=== PATIENT | male | born 1955 | race Caucasian/White ===

== ENCOUNTER → 2018-07-05 | Outpatient (CLI) | payer OTHER ==
[~2018-07-05] MED LIST: CEFD300C37 PO; LOVA10TA PO; MONT10TA6 PO; PRED1TAB PO
[2018-07-05 15:06] LABS: BASOPHILS # (AUTO) 0.02 x10^3/uL (0-0.1); BASOPHILS % (AUTO) 0 % (0-1); EOSINOPHILS # (AUTO) 0.01 x10^3/uL (0-0.4); EOSINOPHILS % (AUTO) 0 % (1-7); LYMPHOCYTES # (AUTO) 1.22 x10^3/uL (1-3.4); LYMPHOCYTES % (AUTO) 11 % (22-44); MD NO; MEAN CORPUSCULAR HEMOGLOBIN 30.6 pg (27.5-34.5); MEAN CORPUSCULAR HGB CONC 34.7 g/dL (33.2-36.2); MEAN CORPUSCULAR VOLUME 88.2 fL (81-97); MEAN PLATELET VOLUME 6.9 fL (7.4-10.4); MONOCYTES % (AUTO) 4 % (2-9); NEUTROPHILS # (AUTO) 9.45 x10^3/uL (1.8-6.8); NEUTROPHILS % (AUTO) 85 % (42-75); PLATELET COUNT 293 x10^3/uL (130-400); RED BLOOD COUNT 5.17 x10^6/uL (4.38-5.82); RED CELL DISTRIBUTION WIDTH 12.9 % (9.4-14.8)
[2018-07-05 15:11] LABS: MICROSCOPIC NOT IND
[2018-07-05 15:14] LABS: CULTURE INDICATED? NO
[2018-07-05 15:16] LABS: INTERNATIONAL NORMALIZED RATIO 0.96 (0.93-1.1); PROTHROMBIN TIME 10.1 Seconds (9.6-11.5)
[2018-07-05 15:17] LABS: ANION GAP 7 mmol/L (5-15); CALCIUM 9.2 mg/dL (8.5-10.1); CHLORIDE 109 mmol/L (98-107); CREATININE 1.33 mg/dL (0.7-1.3)
== END | disposition home or self-care (01) ==
LOC: STAR 14:05
PROVIDERS: ATTEND Neurological Surgery
DX: Z01.818 Encounter for other preprocedural examination (principal); M51.36 Other intervertebral disc degeneration, lumbar region; M51.26 Other intervertebral disc displacement, lumbar region
CPT/HCPCS: 36415; 71046; 72110; 80048; 81003; 85025; 85610; 85730; 93005

== ENCOUNTER 2018-07-14 14:22 | Inpatient (IN) | payer OTHER ==
[~2018-07-14] VITALS: Ht 170.2 cm; Wt 85.8 kg
[2018-07-14 15:00] VITALS: BP 146/99
[2018-07-14] MEDS ORDERED: LACTATED RINGERS 1,000 ML IV SCH (15:38)
[2018-07-14] MEDS ORDERED: EPINEPHRINE 1 MG/ML, 1ML ONE (16:13)
[2018-07-14] MEDS ORDERED: BUPIVACAINE/PF 0.25% ONE (16:13)
[2018-07-14] MEDS ORDERED: BACITRACIN 50,000 UNIT ONE (16:13)
[2018-07-14] MEDS ORDERED: THROMBIN 5,000 UNIT VIAL TP ONE (16:13)
[2018-07-14] MEDS ORDERED: FENTANYL PF 250 MCG/5ML ONE (16:28)
[2018-07-14] MEDS ORDERED: MIDAZOLAM 1 MG/ML, 2ML ONE (16:28)
[2018-07-14] MEDS ORDERED: ROCURONIUM 10 MG/ML,10ML ONE (17:40)
[2018-07-14] MEDS ORDERED: CEFAZOLIN 1,000 MG ONE (17:40)
[2018-07-14] MEDS ORDERED: DEXAMETHASONE 4 MG/ML, 1ML ONE (17:40)
[2018-07-14] MEDS ORDERED: ONDANSETRON 2MG/ML, 2ML ONE (17:40)
[2018-07-14] MEDS ORDERED: PROPOFOL 10 MG/ML, 20ML ONE (17:40)
[2018-07-14] MEDS ORDERED: BUPIVACAINE/PF-EPI 0.25% 1:200K INFIL ONE ×2 (18:11→18:12)
[2018-07-14] MEDS ORDERED: methylPREDNISolone SOD SUCC 125 MG/2 ML ONE (18:33)
[2018-07-14] MEDS ORDERED: FENTANYL PF 100 MCG/2ML ONE ×2 (18:34→19:09)
[2018-07-14] MEDS ORDERED: methylPREDNISolone SOD SUCC 125 MG/2 ML IM ONE (18:37)
[2018-07-14] MEDS ORDERED: HYDROmorphone 1 MG/ML, 1ML VIAL ONE ×2 (19:09→19:59)
[2018-07-14] MEDS ORDERED: OXYcodone 5 MG/5 ML ORAL.SOL UDC ONE (19:10)
[2018-07-14] MEDS ORDERED: ACETAMINOPHEN 325 MG TABLET PO PRN (19:30)
[2018-07-14] MEDS ORDERED: DIAZEPAM 5 MG/ML, 10ML VIAL IVPush PRN (19:30)
[2018-07-14] MEDS ORDERED: hydrALAzine 20 MG/ML, 1ML IV PRN (19:30)
[2018-07-14] MEDS ORDERED: OXYcodone 5 MG/5 ML ORAL.SOL UDC PO PRN (19:30)
[2018-07-14] MEDS ORDERED: MEPERIDINE/PF 25MG/0.5ML IVPush PRN (19:30)
[2018-07-14] MEDS ORDERED: PROMETHAZINE 25 MG/ML, 1ML IV PRN (19:30)
[2018-07-14] MEDS ORDERED: HALOPERIDOL 5 MG/ML IV PRN (19:30)
[2018-07-14] MEDS ORDERED: ALBUTEROL SULFATE 2.5 MG/3 ML NPPB PRN (19:30)
[2018-07-14] MEDS: FENTANYL PF 100 MCG/2ML IV PRN ×2 (19:30→19:35)
[2018-07-14] MEDS: HYDROmorphone 2 MG/ML, 1ML IVPush PRN ×5 (19:36→20:07)
[2018-07-14] MEDS ORDERED: PHARMACY MAY ADJ FOR RENAL FX MC PRN (22:00)
[2018-07-14] MEDS ORDERED: TIZANIDINE 4MG TABLET PO PRN (22:30)
[2018-07-14] MEDS ORDERED: OXYcodone/APAP 10/325MG TABLET PO PRN (22:30)
[2018-07-14] MEDS ORDERED: DIPHENHYDRAMINE 50 MG CAPSULE PO PRN (22:30)
[2018-07-14] MEDS ORDERED: DIPHENHYDRAMINE 50 MG/ML, 1ML IVPush PRN (22:30)
[2018-07-14] MEDS ORDERED: NS + 20MEQ KCL 1,000 ML IV SCH (22:30)
[2018-07-14] MEDS ORDERED: BISACODYL 10 MG SUPP PR PRN (22:30)
[2018-07-14] MEDS ORDERED: PROMETHAZINE 25 MG/ML, 1ML IM PRN (22:30)
[2018-07-14] MEDS ORDERED: morphine SULFATE 10 MG/ML, 1ML IV PRN (22:30)
[2018-07-14] MEDS ORDERED: MAGNESIUM HYDROXIDE 8%, 30ML UDC PO PRN (22:30)
[2018-07-15] VITALS: BP 139/79
[2018-07-15] MEDS: ONDANSETRON 2MG/ML, 2ML IV PRN ×2 (00:17→09:33)
[2018-07-15] MEDS: HYDROcodone/APAP 10/325 MG TABLET PO PRN ×2 (01:01→06:27)
[2018-07-15] MEDS: CEFAZOLIN PMX 1GM/50ML 50 ML IVPB SCH ×2 (02:44→10:47)
[2018-07-15 03:51] VITALS: BP 133/83
[2018-07-15] MEDS ORDERED: SENNA/DOCUSATE TABLET PO SCH (09:00)
[2018-07-15] MEDS ORDERED: SENN-177 PO (09:33)
[2018-07-15] MEDS ORDERED: HYDR-3307 PO (09:34)
[2018-07-15] MEDS ORDERED: TIZA4TAB PO (09:37)
[2018-07-15 10:12] VITALS: BP 131/80
[2018-07-15 11:36] VITALS: BP 117/70
== END 2018-07-15 12:36 | disposition home or self-care (01) | DRG 517 ==
LOC: OR 14:22 → 4NOR 21:00 → OR 22:11 → DCLOUNGE 07-15 11:55
PROVIDERS: ADMIT Neurological Surgery; ATTEND Neurological Surgery
PROC: 01NR0ZZ Release Sacral Nerve, Open Approach (ICD-10-PCS; 2018-07-14)
PROC: 01NB0ZZ Release Lumbar Nerve, Open Approach (ICD-10-PCS; principal; 2018-07-14 17:30)
DX: M48.07 Spinal stenosis, lumbosacral region (principal); Z98.1 Arthrodesis status; E78.5 Hyperlipidemia, unspecified; G89.18 Other acute postprocedural pain; M51.17 Intervertebral disc disorders with radiculopathy, lumbosacral region; Z82.3 Family history of stroke
CPT/HCPCS: 72100; G0378; J0171; J0690; J1100; J1170; J2250; J2405; J2704; J3010; J3490; J2930; J7120